=== PATIENT | male | born 1960 | race Caucasian/White ===

== ENCOUNTER → 2017-09-13 | Outpatient (CLI) | payer BC ==
--- NOTE | 2017-09-13 09:25 | DIAGNOSTIC IMAGING REPORT ---
GALLBLADDER-ABD LIMITED CLINICAL HISTORY: 57 years-old Male presenting with R11.0 Nausea. TECHNIQUE: Real-time grayscale and limited color Doppler ultrasound imaging of the abdomen limited to the right upper quadrant was performed. COMPARISON: None. FINDINGS: Pancreas: Visualized portions of the pancreatic head and body normal. Liver: Normal echogenicity and echotexture. The liver measures 18.1 cm in maximal sagittal dimension. Heterogeneous hypoechoic peripheral masslike region in the anterior liver measuring 5.4 x 3.1 x 5.5 cm. This also demonstrates peripheral hyperechogenicity along a portion of the mass. Main portal vein patent with normal directional flow. Biliary: No intrahepatic biliary ductal dilatation. Common bile duct measures up to 4 mm in diameter. Gallbladder: No evidence of gallstones, gallbladder wall thickening, gallbladder distention, or pericholecystic fluid or inflammatory change. Sonographic Juarez's sign negative. Right kidney: Normal in appearance. No hydronephrosis. Ascites: None. IMPRESSION: Heterogeneous 5.5 cm mass in the anterior liver. This is indeterminate and concerning for neoplasm. Further evaluation with dedicated contrast-enhanced liver CT or MR recommended for further evaluation. The report will be called/faxed according to standard departmental protocol. Electronically signed by: Geoff Michelle M.D. 09/13/2017 9:23 AM Dictated Date/Time: 09/13/2017 9:21 AM
== END | disposition home or self-care (01) ==
LOC: C.ULTR 08:41
PROVIDERS: ATTEND Physician Assistant Medical
DX: R11.0 Nausea (principal); R16.0 Hepatomegaly, not elsewhere classified

== ENCOUNTER → 2017-09-23 | Outpatient (CLI) | payer BC ==
[~2017-09-23] MED LIST: OPTIRAY 320 IV PRN
--- NOTE | 2017-09-23 12:50 | DIAGNOSTIC IMAGING REPORT ---
LIVER (ABDOMEN) COMBO CLINICAL HISTORY: R93.8 Abnormal finding on imaging5 cm mass of anterior liver on TECHNIQUE: Transaxial CT acquisition and multiphase fashion with three-dimensional reconstruction COMPARISON STUDY: Ultrasound 09/13/2017 FINDINGS: 5 cm hypodensity on the unenhanced component of the study peripheral aspect right hepatic lobe. Multi phase a component of the study shows peripheral enhancing nodularity. This slowly progresses in terms of enhancement although there is no evidence for complete filling. This is highly consistent for a benign degenerative hemangioma. Main components of the study demonstrate the kidneys to be uniform in overall enhancement characteristics. The adrenal glands are unremarkable. Pancreas is uniform. Bowel pattern is considered nonobstructive. Mesenteric vessels appear to enhance appropriately. Minimal atherosclerotic change of the abdominal aorta is noted. IMPRESSION: 1. 5 cm hepatic lesion consistent with a benign hemangioma. 2. Study is otherwise unremarkable. The above report was generated using voice recognition software. It may contain grammatical, syntax or spelling errors. Electronically signed by: Darek Farmer M.D. 09/23/2017 12:49 PM Dictated Date/Time: 09/23/2017 12:37 PM
== END | disposition home or self-care (01) ==
LOC: C.CTS 12:05
PROVIDERS: ATTEND Physician Assistant Medical
DX: K76.9 Liver disease, unspecified (principal)